=== PATIENT | male | born 1995 | race Hispanic/Latino ===

== ENCOUNTER 2020-10-31 10:26 | Emergency (ER) | payer OTHER ==
[2020-10-31] MEDS ORDERED: OFLOXACIN0.3 % OS (12:49)
[2020-10-31 13:00] VITALS: BP 114/79
== END 2020-10-31 13:00 | disposition home or self-care (01) | DRG 115 ==
LOC: ED 10:26
PROC: 08C9XZZ Extirpation of Matter from Left Cornea, External Approach (ICD-10-PCS; principal; 2020-10-31)
DX: S05.02XA Injury of conjunctiva and corneal abrasion without foreign body, left eye, initial encounter (principal); X58.XXXA Exposure to other specified factors, initial encounter; Y92.89 Other specified places as the place of occurrence of the external cause; Y99.0 Civilian activity done for income or pay

== ENCOUNTER 2021-11-03 16:20 | Emergency (ER) | payer OTHER ==
[~2021-11-03] VITALS: Ht 167.6 cm; Wt 70.0 kg
[~2021-11-03 16:20] MED LIST: OFLOXACIN0.3 % OS
[2021-11-03 16:39] VITALS: BP 115/77
[2021-11-03 16:45] VITALS: BP 108/69
[2021-11-03 17:00] VITALS: BP 116/68
[2021-11-03 17:16] VITALS: BP 101/68
[2021-11-03] MEDS ORDERED: KEFLEX500 MG PO (17:19)
[2021-11-03 17:30] VITALS: BP 112/76
[2021-11-03 17:35] VITALS: BP 112/76
== END 2021-11-03 17:35 | disposition home or self-care (01) | DRG 605 ==
LOC: ED 16:20
PROC: 0HQGXZZ Repair Left Hand Skin, External Approach (ICD-10-PCS; principal; 2021-11-03)
DX: S61.215A Laceration without foreign body of left ring finger without damage to nail, initial encounter (principal); W29.4XXA Contact with nail gun, initial encounter; Y92.89 Other specified places as the place of occurrence of the external cause; Y99.0 Civilian activity done for income or pay

== ENCOUNTER 2021-11-13 09:04 | Emergency (ER) | payer OTHER ==
[~2021-11-13] VITALS: Ht 167.6 cm; Wt 71.8 kg
[~2021-11-13 09:04] MED LIST changes: +KEFLEX500 MG PO
[2021-11-13 09:10] VITALS: BP 108/76
[2021-11-13 09:12] VITALS: BP 108/76
== END 2021-11-13 09:34 | disposition home or self-care (01) | DRG 950 ==
LOC: ED 09:04
DX: S61.215D Laceration without foreign body of left ring finger without damage to nail, subsequent encounter (principal); X58.XXXD Exposure to other specified factors, subsequent encounter